=== PATIENT | female | born 1970 | race Caucasian/White ===

== ENCOUNTER → 2024-08-01 | Outpatient (REF) | payer OTHER ==
[2024-08-03 12:48] LABS: HPV APTIMA Not Detected (Not Detected)
== END ==
LOC: M SFHCWAGY 17:20
PROVIDERS: ATTEND Obstetrics & Gynecology
DX: Z12.4 Encounter for screening for malignant neoplasm of cervix (principal)
CPT/HCPCS: 87624; G0123